=== PATIENT | female | born 1965 | race Asian ===

== ENCOUNTER 2016-09-11 06:22 | Day surgery (SDC) | payer OTHER ==
[~2016-09-11] VITALS: Ht 157.5 cm; Wt 66.2 kg
[2016-09-11] MEDS ORDERED: ONDANSETRON 4 MG/2 ML VIAL IVP PRN ×2 (07:30→07:35)
[2016-09-11] MEDS ORDERED: ACETAMINOPHEN/CODEINE 300/30MG 1 TAB PO PRN ×3 (07:30→07:35)
[2016-09-11] MEDS ORDERED: MORPHINE SULFATE 4 MG/ML SYR IM/IVP PRN ×2 (07:30→07:35)
[2016-09-11] MEDS ORDERED: IBUPROFEN 800 MG TAB PO PRN (07:35)
[2016-09-11] MEDS ORDERED: MIDAZOLAM 2 MG/2 ML VIAL ONE (10:34)
[2016-09-11] MEDS ORDERED: fentaNYL 0.05 MG/ML VIAL ONE (10:34)
[2016-09-11] MEDS ORDERED: MORPHINE SULFATE 4 MG/ML SYR IVP PRN ×2 (11:00)
[2016-09-11] MEDS ORDERED: METOCLOPRAMIDE 10 MG/2 ML INJ VIAL IVP PRN (11:00)
[2016-09-11] MEDS ORDERED: MORPHINE SULFATE 2 MG/ML SYR IVP PRN (11:00)
[2016-09-11] MEDS ORDERED: MIDAZOLAM 2 MG/2 ML VIAL IV ONE (11:00)
== END 2016-09-11 12:20 | disposition home or self-care (01) ==
LOC: MDS 06:22 → MMU 06:22 → MDS 12:20
PROVIDERS: ATTEND Obstetrics & Gynecology
DX: N95.0 Postmenopausal bleeding (principal); N85.00 Endometrial hyperplasia, unspecified; I10 Essential (primary) hypertension; E78.5 Hyperlipidemia, unspecified
CPT/HCPCS: 58120; 71010; J2250; J3010; J7120; Q0092